=== PATIENT | female | born 1990 | race African-American/Black ===

== ENCOUNTER 2019-08-11 17:37 | Emergency (ER) | payer MEDICAID ==
[~2019-08-11] VITALS: Ht 167.6 cm; Wt 75.0 kg
[2019-08-11] MEDS ORDERED: OLANZAPINE 10 MG/VIAL IM STA (17:48)
[2019-08-11 19:04] LABS: CLARITY URINE CLEAR (CLEAR); COLOR URINE YELLOW (YELLOW); KETONES URINE TRACE (NEGATIVE); LEUKOCYTE ESTERASE URINE NEGATIVE (NEGATIVE); NITRITE URINE NEGATIVE (NEGATIVE); OCCULT BLOOD URINE TRACE (NEGATIVE); PROTEIN URINE 2+ (NEGATIVE); UROBILINOGEN URINE 0.2 E.U./dL (0.2-1.0)
[2019-08-11 19:10] LABS: BASOPHILS % 0.5 % (0.0-2.0); EOSINOPHILS % 0.2 % (0.0-5.0); HEMOGLOBIN. 12.9 g/dL (12.0-16.0); LYMPHOCYTES % 7.4 % (20.0-50.0); MEAN CORPUSCULAR HEMOGLOBIN 31.5 pg (28.0-32.0); MEAN CORPUSCULAR VOLUME 92.5 fL (81.0-99.0); MEAN PLATELET VOLUME 8.6 fl (7.4-10.4); MONOCYTES % 4.3 % (2.0-8.0); NEUTROPHILS % 87.6 % (40.0-76.0); PLATELET 231 x1000/uL (130-400); RED CELL DISTRIBUTION WIDTH 13.9 % (11.6-14.6)
[2019-08-11 19:15] LABS: CHLORIDE 107 mEq/L (98-107)
[2019-08-11 19:20] LABS: ETHANOL BLOOD < 10 mg/dL
[2019-08-11 19:38] LABS: *BARBITURATES SCREEN URINE NEGATIVE (NEGATIVE); *BENZODIAZEPINES SCREEN URINE NEGATIVE (NEGATIVE); *COCAINE SCREEN URINE NEGATIVE (NEGATIVE)
[2019-08-11 19:39] LABS: METHADONE URINE SCREEN NEGATIVE (NEGATIVE); OPIATES URINE SCREEN NEGATIVE (NEGATIVE); PHENCYCLIDINE URINE SCREEN NEGATIVE (NEGATIVE)
[2019-08-11 19:48] VITALS: BP 142/81
[2019-08-11 19:50] LABS: *AMPHETAMINES SCREEN URINE PRESUMTIVE POSITIVE (NEGATIVE); CANNABINOID URINE SCREEN PRESUMTIVE POSITIVE (NEGATIVE)
== END 2019-08-11 19:55 | disposition home or self-care (01) ==
LOC: ER 17:37
DX: R45.1 Restlessness and agitation (principal); Y04.8XXA Assault by other bodily force, initial encounter; Y93.89 Activity, other specified; Y92.89 Other specified places as the place of occurrence of the external cause; Y99.8 Other external cause status
CPT/HCPCS: 36415; 80053; 80305; 80320; 81003; 85025; 96372; 99283; J3490; G0480

== ENCOUNTER 2020-03-02 09:58 | Inpatient (IN) | payer MEDICAID ==
[~2020-03-02] VITALS: Ht 165.1 cm; Wt 72.4 kg
[2020-03-02 11:12] LABS: BASOPHILS % 0.2 % (0.0-2.0); HEMATOCRIT. 42.4 % (36.0-48.0); HEMOGLOBIN. 13.8 g/dL (12.0-16.0); LYMPHOCYTES % 12.6 % (20.0-50.0); MEAN CORPUSCULAR HEMOGLOBIN 30.7 pg (28.0-32.0); MEAN CORPUSCULAR VOLUME 94.4 fL (81.0-99.0); MEAN PLATELET VOLUME 9.2 fl (7.4-10.4); NEUTROPHILS % 84.2 % (40.0-76.0); PLATELET 215 x1000/uL (130-400); RED BLOOD CELL COUNT 4.49 mill/uL (4.2-5.4); RED CELL DISTRIBUTION WIDTH 13.7 % (11.6-14.6)
[2020-03-02 11:17] LABS: CHLORIDE 105 mEq/L (98-107)
[2020-03-02 11:20] LABS: INR 0.9; PROTHROMBIN TIME 9.8 sec (9.6-11.0)
[2020-03-02 11:40] VITALS: BP 152/80
[2020-03-02] MEDS ORDERED: VANCOMYCIN 1 G PREMIX 200 ML IV ONE (12:00)
[2020-03-02] MEDS ORDERED: PIPERACILLIN/TAZ 3.375G PREMIX 50 ML IV ONE (12:00)
[2020-03-02 13:29] LABS: CLARITY URINE CLEAR (CLEAR); COLOR URINE YELLOW (YELLOW); KETONES URINE NEGATIVE (NEGATIVE); LEUKOCYTE ESTERASE URINE NEGATIVE (NEGATIVE); NITRITE URINE NEGATIVE (NEGATIVE); OCCULT BLOOD URINE NEGATIVE (NEGATIVE); PH URINE 6.5 (4.5-8.0); PROTEIN URINE 1+ (NEGATIVE); SPECIFIC GRAVITY URINE 1.013 (1.005-1.030); UROBILINOGEN URINE 0.2 E.U./dL (0.2-1.0)
[2020-03-02] MEDS ORDERED: DIPHENHYDRAMINE 50MG/ML VIAL IV PRN (14:15)
[2020-03-02] MEDS ORDERED: ONDANSETRON HCL 4MG/2ML INJ IV PRN (14:15)
[2020-03-02] MEDS ORDERED: ACETAMINOPHEN 325MG TABLET PO PRN (14:15)
[2020-03-02] MEDS ORDERED: DEXTROSE 50% WATER 50ML SYRINGE IV NR (19:30)
[2020-03-02] MEDS: DEXTROSE 5% WATER 1,000 ML IV SCH (20:04)
[2020-03-03] VITALS (17 sets, daily range): BP systolic 116–195; BP diastolic 72–104
[2020-03-03] MEDS: DEXTROSE 5% WATER 1,000 ML IV SCH (01:20)
[2020-03-03 06:19] LABS: CHLORIDE 107 mEq/L (98-107)
[2020-03-03 06:28] LABS: LDL CHOLESTEROL 44 mg/dL (5-100)
[2020-03-03 06:29] LABS: HDL CHOLESTEROL 101 mg/dL (40-59)
[2020-03-03] MEDS: DEXTROSE 50% WATER 50ML SYRINGE IV PRN ×7 (07:02→21:16)
[2020-03-03 07:05] LABS: BASOPHILS % 0.4 % (0.0-2.0); EOSINOPHILS % 0.5 % (0.0-5.0); HEMATOCRIT. 38.9 % (36.0-48.0); HEMOGLOBIN. 12.8 g/dL (12.0-16.0); LYMPHOCYTES % 18.4 % (20.0-50.0); MEAN CORPUSCULAR VOLUME 93.9 fL (81.0-99.0); MEAN PLATELET VOLUME 9.4 fl (7.4-10.4); MONOCYTES % 12.5 % (2.0-8.0); NEUTROPHILS % 68.2 % (40.0-76.0); PLATELET 218 x1000/uL (130-400); RED BLOOD CELL COUNT 4.14 mill/uL (4.2-5.4); RED CELL DISTRIBUTION WIDTH 13.7 % (11.6-14.6)
[2020-03-03] MEDS ORDERED: DEXTROSE 10% WATER 500 ML IV ONE ×2 (12:15→13:00)
[2020-03-03] MEDS ORDERED: LORAZEPAM 2MG/ML CPJ IV PRN (13:00)
[2020-03-03] MEDS ORDERED: DEXTROSE 50% WATER 50ML SYRINGE IV ONE ×3 (13:06→13:15)
[2020-03-03] MEDS ORDERED: DEXTROSE 10% WATER 500 ML IV SCH ×2 (13:15→16:15)
[2020-03-03] MEDS ORDERED: LIDOCAINE HCL 1% 20ML VIAL (Pyxis) INJ ONE ×2 (13:55→14:24)
[2020-03-03] MEDS ORDERED: SODIUM BICARBONATE 4% (2.4MEQ) 5ML VIAL IV ONE (14:24)
[2020-03-03] MEDS ORDERED: LEVETIRACETAM 500 MG in SODIUM CHLORIDE 0.9% 100 ML IV SCH (14:30)
[2020-03-03 15:59] LABS: *AMPHETAMINES SCREEN URINE NEGATIVE (NEGATIVE); *BARBITURATES SCREEN URINE NEGATIVE (NEGATIVE); *BENZODIAZEPINES SCREEN URINE NEGATIVE (NEGATIVE); *COCAINE SCREEN URINE NEGATIVE (NEGATIVE)
[2020-03-03 16:00] LABS: CANNABINOID URINE SCREEN NEGATIVE (NEGATIVE); METHADONE URINE SCREEN NEGATIVE (NEGATIVE); OPIATES URINE SCREEN NEGATIVE (NEGATIVE); PHENCYCLIDINE URINE SCREEN NEGATIVE (NEGATIVE)
[2020-03-03] MEDS: CLONIDINE 0.1MG TABLET PO PRN (16:00)
[2020-03-03] MEDS: DEXTROSE 20% WATER 500 ML IV SCH ×2 (16:27→21:11)
[2020-03-03] MEDS: THIAMINE HCL 100MG TABLET PO SCH (20:11)
[2020-03-03] MEDS: LEVETIRACETAM 500MG PREMIX 100 ML IV SCH (21:11)
[2020-03-03 22:10] LABS: ETHANOL BLOOD < 10 mg/dL
[2020-03-03 22:16] LABS: T4 FREE 0.84 ng/dL (0.76-1.46)
[2020-03-04] VITALS (28 sets, daily range): BP systolic 117–179; BP diastolic 53–110
[2020-03-04] MEDS: DEXTROSE 50% WATER 50ML SYRINGE IV PRN ×8 (00:02→12:17)
[2020-03-04] MEDS: DEXTROSE 20% WATER 500 ML IV SCH ×5 (02:37→20:41)
[2020-03-04 05:27] LABS: BASOPHILS % 0.7 % (0.0-2.0); HEMOGLOBIN. 12.9 g/dL (12.0-16.0); LYMPHOCYTES % 20.4 % (20.0-50.0); MEAN CORPUSCULAR HEMOGLOBIN 31.7 pg (28.0-32.0); MEAN CORPUSCULAR VOLUME 93.1 fL (81.0-99.0); MEAN PLATELET VOLUME 8.4 fl (7.4-10.4); MONOCYTES % 9.7 % (2.0-8.0); NEUTROPHILS % 67.2 % (40.0-76.0); PLATELET 199 x1000/uL (130-400); RED BLOOD CELL COUNT 4.08 mill/uL (4.2-5.4); RED CELL DISTRIBUTION WIDTH 13.5 % (11.6-14.6)
[2020-03-04 05:38] LABS: CHLORIDE 105 mEq/L (98-107)
[2020-03-04 05:50] LABS: T4 FREE 0.79 ng/dL (0.76-1.46)
[2020-03-04] MEDS: LEVETIRACETAM 500MG PREMIX 100 ML IV SCH ×2 (08:05→20:40)
[2020-03-04] MEDS: MULTIVITAMINS,THER W-MINERALS TABLET PO SCH (08:05)
[2020-03-04] MEDS: THIAMINE HCL 100MG TABLET PO SCH (08:05)
[2020-03-04] MEDS: FOLIC ACID 1MG TABLET PO SCH (08:05)
[2020-03-05] VITALS (26 sets, daily range): BP systolic 123–188; BP diastolic 42–108
[2020-03-05] MEDS: DEXTROSE 20% WATER 500 ML IV SCH ×3 (01:11→09:32)
[2020-03-05 06:55] LABS: BASOPHILS % 0.7 % (0.0-2.0); EOSINOPHILS % 3.3 % (0.0-5.0); HEMATOCRIT. 35.6 % (36.0-48.0); LYMPHOCYTES % 20.5 % (20.0-50.0); MEAN CORPUSCULAR HEMOGLOBIN 31.1 pg (28.0-32.0); MEAN CORPUSCULAR VOLUME 92.7 fL (81.0-99.0); MEAN PLATELET VOLUME 8.9 fl (7.4-10.4); MONOCYTES % 10.5 % (2.0-8.0); PLATELET 183 x1000/uL (130-400); RED BLOOD CELL COUNT 3.84 mill/uL (4.2-5.4); RED CELL DISTRIBUTION WIDTH 13.3 % (11.6-14.6)
[2020-03-05 07:08] LABS: CHLORIDE 105 mEq/L (98-107)
[2020-03-05 08:04] LABS: HEPATITIS A AB IGM NEGATIVE (NEGATIVE)
[2020-03-05] MEDS ORDERED: DEXTROSE 10% WATER 500 ML IV ONE (09:30)
[2020-03-05] MEDS: LEVETIRACETAM 500MG PREMIX 100 ML IV SCH ×2 (09:32→21:28)
[2020-03-05] MEDS: THIAMINE HCL 100MG TABLET PO SCH (09:33)
[2020-03-05] MEDS: MULTIVITAMINS,THER W-MINERALS TABLET PO SCH (09:33)
[2020-03-05] MEDS: FOLIC ACID 1MG TABLET PO SCH (09:33)
[2020-03-05 12:49] LABS: HEPATITIS B SURFACE ANTIGEN NEGATIVE
[2020-03-05] MEDS: CLONIDINE 0.1MG TABLET PO PRN (13:15)
[2020-03-05] MEDS: DEXTROSE 10% WATER 500 ML IV SCH ×2 (15:56→21:27)
[2020-03-05] MEDS: BLOOD SUGAR DIAGNOSTIC STRIP TEST SCH ×4 (16:39→22:52)
[2020-03-06] VITALS (17 sets, daily range): BP systolic 111–165; BP diastolic 62–119
[2020-03-06] MEDS ORDERED: BLOOD SUGAR DIAGNOSTIC STRIP TEST SCH (02:00)
[2020-03-06] MEDS: DEXTROSE 10% WATER 500 ML IV SCH ×2 (02:09→06:38)
[2020-03-06] MEDS: INSULIN LISPRO 100 UNITS/ML SUBCUT SCH ×2 (04:00→08:00)
[2020-03-06] MEDS: BLOOD SUGAR DIAGNOSTIC STRIP TEST SCH ×6 (05:08→20:50)
[2020-03-06 05:47] LABS: CHLORIDE 106 mEq/L (98-107)
[2020-03-06 05:56] LABS: PHOSPHORUS 3.7 mg/dL (2.5-4.9)
[2020-03-06] MEDS: LEVETIRACETAM 500MG PREMIX 100 ML IV SCH ×2 (09:39→22:00)
[2020-03-06] MEDS: MULTIVITAMINS,THER W-MINERALS TABLET PO SCH (09:39)
[2020-03-06] MEDS: THIAMINE HCL 100MG TABLET PO SCH (09:39)
[2020-03-06] MEDS: FOLIC ACID 1MG TABLET PO SCH (09:39)
[2020-03-06] MEDS: CLONIDINE 0.1MG TABLET PO PRN (16:50)
[2020-03-07] VITALS: BP 121/78
[2020-03-07] MEDS: BLOOD SUGAR DIAGNOSTIC STRIP TEST SCH ×6 (00:19→20:21)
[2020-03-07 04:00] VITALS: BP 129/86
[2020-03-07 06:07] LABS: C-PEPTIDE 0.4 ng/mL (1.1-4.4); INSULIN 24.9 uIU/mL (2.6-24.9)
[2020-03-07 08:00] VITALS: BP 145/99
[2020-03-07] MEDS: FOLIC ACID 1MG TABLET PO SCH (08:52)
[2020-03-07] MEDS: THIAMINE HCL 100MG TABLET PO SCH (08:52)
[2020-03-07] MEDS: LEVETIRACETAM 500MG PREMIX 100 ML IV SCH (08:52)
[2020-03-07] MEDS: MULTIVITAMINS,THER W-MINERALS TABLET PO SCH (08:52)
[2020-03-07] MEDS: CLONIDINE 0.1MG TABLET PO PRN ×2 (08:52→20:21)
[2020-03-07 12:00] VITALS: BP 146/90
[2020-03-07 16:00] VITALS: BP 130/90
[2020-03-07 20:00] VITALS: BP 149/96
[2020-03-07] MEDS: LEVETIRACETAM 500MG TABLET PO SCH (20:21)
[2020-03-08] VITALS: BP 114/65
[2020-03-08] MEDS: BLOOD SUGAR DIAGNOSTIC STRIP TEST SCH ×7 (00:14→23:44)
[2020-03-08 04:00] VITALS: BP 132/87
[2020-03-08 08:00] VITALS: BP 136/90
[2020-03-08] MEDS: THIAMINE HCL 100MG TABLET PO SCH (09:02)
[2020-03-08] MEDS: FOLIC ACID 1MG TABLET PO SCH (09:02)
[2020-03-08] MEDS: LEVETIRACETAM 500MG TABLET PO SCH ×2 (09:02→20:42)
[2020-03-08] MEDS: MULTIVITAMINS,THER W-MINERALS TABLET PO SCH (09:03)
[2020-03-08 12:00] VITALS: BP 141/87
[2020-03-08 16:00] VITALS: BP 141/95
[2020-03-08 20:00] VITALS: BP 146/87
[2020-03-09] VITALS: BP 131/74
[2020-03-09 04:00] VITALS: BP 123/81
[2020-03-09] MEDS: BLOOD SUGAR DIAGNOSTIC STRIP TEST SCH ×2 (04:37→08:35)
[2020-03-09] MEDS: FOLIC ACID 1MG TABLET PO SCH (08:35)
[2020-03-09] MEDS: LEVETIRACETAM 500MG TABLET PO SCH (08:35)
[2020-03-09] MEDS: THIAMINE HCL 100MG TABLET PO SCH (08:35)
[2020-03-09] MEDS: MULTIVITAMINS,THER W-MINERALS TABLET PO SCH (08:35)
[2020-03-09 12:00] VITALS: BP 135/81
[2020-03-09] MEDS ORDERED: KEPP500 PO (12:34)
[2020-03-09 15:09] LABS: PRO INSULIN 2.4 pmol/L (0.0-10.0)
[2020-03-09 15:38] VITALS: BP 135/81
[2020-03-10 13:06] LABS: INSULIN 4.2 uIU/mL (2.6-24.9)
[2020-03-12 17:06] LABS: INSULIN AUTOANTIBODIES < 5.0 uU/mL (.)
[2020-03-14 14:07] LABS: PRO INSULIN < 0.3 pmol/L (0.0-10.0)
[2020-03-17 10:07] LABS: INSULIN 28.1 uIU/mL (2.6-24.9)
== END 2020-03-09 16:38 | disposition home or self-care (01) | DRG 424 ==
LOC: ER 09:58 → MICUSO 13:37 → EDBEDREQ 13:40 → EDBEDREQTM 13:40 → 3WST 22:56 → CVICU 03-03 14:05 → 6EST 03-06 17:31
PROVIDERS: ADMIT Internal Medicine; ATTEND Internal Medicine
PROC: 02HV33Z Insertion of Infusion Device into Superior Vena Cava, Percutaneous Approach (ICD-10-PCS; principal; 2020-03-03)
PROC: B548ZZA Ultrasonography of Superior Vena Cava, Guidance (ICD-10-PCS; 2020-03-03)
DX: E16.2 Hypoglycemia, unspecified (principal); G93.41 Metabolic encephalopathy; R56.9 Unspecified convulsions; E87.2 Acidosis; F99 Mental disorder, not otherwise specified; Z20.828 Contact with and (suspected) exposure to other viral communicable diseases; Z83.3 Family history of diabetes mellitus
CPT/HCPCS: 36415; 70551; 71045; 76937; 80048; 80053; 80061; 80305; 80320; 80377; 81003; 82010; 82140; 82330; 82533; 82607; 82746; 82947; 82962; 83036; 83525; 83605; 83735; 84100; 84134; 84145; 84206; 84305; 84439; 84443; 84481; 84484; 84681; 85025; 86337; 86705; 86709; 86803; 87077; 87186; 87340; 87426; 93005; 93970; 99291; C1725; J1953; J2543; J3370; J3490; J7040; J7050; J7070; G0480